=== PATIENT | male | born 1990 | race African-American/Black ===

== ENCOUNTER 2023-03-09 08:09 | Inpatient (IN) | payer OTHER | END 2023-03-09 09:10 | DRG 44 | LOC: MICUSO 08:09 | PROC: 03HY33Z Insertion of Infusion Device into Upper Artery, Percutaneous Approach (ICD-10-PCS; principal; 2023-03-09) | DX: I60.9 Nontraumatic subarachnoid hemorrhage, unspecified (principal); I61.5 Nontraumatic intracerebral hemorrhage, intraventricular; G93.41 Metabolic encephalopathy | CPT/HCPCS: J1815; J2543; J2930; J3490; J7050; J7060 ==